=== PATIENT | male | born 1975 ===

== ENCOUNTER 2016-10-12 20:48 | Observation (INO) | payer OTHER ==
[~2016-10-12] VITALS: Ht 172.7 cm; Wt 101.1 kg
[2016-10-12] MEDS ORDERED: HYDR25TA4 PO (21:35)
[2016-10-12] MEDS ORDERED: AMLO-110 PO (21:35)
[2016-10-12] MEDS ORDERED: LORAZEPAM 2 MG/ML 1 ML VIAL IV STA (21:57)
--- NOTE | 2016-10-12 22:20 | DIAGNOSTIC IMAGING REPORT ---
CHEST ONE VIEW PORTABLE CLINICAL HISTORY: CHEST PAIN dyspnea COMPARISON STUDY: No previous studies for comparison. FINDINGS: The bones soft tissues and hemidiaphragms are normal. The cardiomediastinal silhouette is normal. The lungs are clear. The pulmonary vasculature is normal. IMPRESSION: Negative chest. Electronically signed by: Sotero Kennedy M.D. 10/12/2016 10:19 PM Dictated Date/Time: 10/12/2016 10:19 PM
[2016-10-12 22:25] LABS: BASO % 0.2 %; BASO ABS # 0.03 K/uL (0-0.2); EOS % 3.5 %; HEMATOCRIT 44.5 % (42-52); IG% 0.4 %; LYMPH % 33.3 %; MEAN CELL VOLUME 68.4 fL (80-100); MEAN CORPUSCULAR HEMOGLOBIN 23.5 pg (25-34); MEAN CORPUSCULAR HGB CONC 34.4 g/dl (32-36); MEAN PLATELET VOLUME 9.9 fL (7.4-10.4); MONO % 6.2 %; NEUT % 56.4 %; PLATELET COUNT 328 K/uL (130-400); RED BLOOD COUNT 6.51 M/uL (4.7-6.1); WHITE BLOOD COUNT 13.21 K/uL (4.8-10.8)
[2016-10-12] MEDS ORDERED: PRLSR20 PO (22:29)
[2016-10-12] MEDS ORDERED: PEDICHW34 PO (22:30)
[2016-10-12] MEDS ORDERED: LORA-741 PO (22:30)
[2016-10-12 22:44] LABS: BUN/CREATININE RATIO 10.4 (10-20); CALCIUM 9.1 mg/dl (8.5-10.1); CREATININE 1.6 mg/dl (0.60-1.40); MAGNESIUM 2.2 mg/dl (1.8-2.4); POTASSIUM 3.3 mmol/L (3.5-5.1)
[2016-10-12 22:59] LABS: CKMB/CK RATIO 0.6 (0-3.0); THYROID STIMULATING HORMONE 2.86 uIu/ml (0.300-4.500)
[2016-10-12 23:27] LABS: COMPLETE YES; MICROCYTOSIS PRESENT
[2016-10-12 23:38] LABS: C-REACTIVE PROTEIN 1.47 mg/dl (0-0.29)
[2016-10-13] MEDS ORDERED: POTASSIUM CHLORIDE 10 MEQ TABCR PO STA (00:11)
[2016-10-13] MEDS ORDERED: OPTIRAY 320 IV PRN (00:15)
[2016-10-13] MEDS ORDERED: LORAZEPAM 2 MG/ML 1 ML VIAL IV PRN (02:00)
[2016-10-13] MEDS ORDERED: HYDROmorphone INJ 0.5 MG/0.5 ML SYR IV PRN (02:00)
[2016-10-13] MEDS ORDERED: TRAMADOL HCL 50 MG TAB PO PRN (02:00)
[2016-10-13] MEDS ORDERED: ONDANSETRON INJ 2 MG/ML 2 ML VIAL IV PRN (02:00)
[2016-10-13] MEDS ORDERED: NITROGLYCERIN 0.4 MG SL PER TAB CHARGE SL PRN (02:00)
[2016-10-13] MEDS ORDERED: ACETAMINOPHEN 325 MG TAB PO PRN (02:00)
[2016-10-13 02:15] VITALS: BP 192/93; PULSE 86; TEMP 36.6; O2SAT 95; Ht 172.7 cm; Wt 101.1 kg
[2016-10-13] MEDS ORDERED: IV FLUIDS COMPLETED PRN (02:15)
[2016-10-13] MEDS ORDERED: LORAZEPAM INJ 0.5 MG in SYRINGE 0.75 ML IV PRN (02:30)
[2016-10-13] MEDS ORDERED: NSS + 20MEQ KCL 1000ML 1,000 ML IV ONE (02:45)
[2016-10-13] MEDS ORDERED: AMLODIPINE BESYLATE 5 MG TAB PO ONE (04:26)
--- NOTE | 2016-10-13 04:54 | EMERGENCY ROOM VISIT NOTE ---
History First contact with patient: 21:28 Chief Complaint: CHEST PAIN Stated Complaint: CHEST PAIN Nursing Triage Summary: Patient states "I have high blood pressure and chest pain since this afternoon. " History of Present Illness The patient is a 41 year old male who presents to the Emergency Room with complaints of cough, fatigue for the past 10 days he's been extremely fatigued for the past 3 months. Patient states yesterday he went to the [facility] for his cough and cold symptoms and they noticed his blood pressure was high. They started him on hydrochlorothiazide today. He followed up today and was still high. He was told to double some amlodipine. Today at 4:30 PM when he was in a car he had 3 minutes of left-sided chest pain. He had another episode a few hours later. This was not prolonged. No prior history of heart disease. He states he had a stress test and echo a few years ago that was normal per patient. Patient states he does snore when he sleeps but was checked for sleep apnea and this was negative. No family history of heart disease. Patient denies prolonged chest pain, nausea, vomiting, diarrhea, diaphoresis, abdominal pain, back pain, palpitations, racing heart, leg pain or swelling. He has traveled recently. His blood pressure was 200/100 today and yesterday. Review of Systems See HPI for pertinent positives & negatives. A total of 10 systems reviewed and were otherwise negative. Past Medical/Surgical History Medical Problems: (1) Chest pain Hypertension, GERD Social History Smoking Status: Current Every Day Smoker Drug Use: none Marital Status: Housing Status: lives with family Current/Historical Medications Scheduled Amlodipine (Norvasc), 5 MG PO DAILY Hydrochlorothiazide (Hctz), 25 MG PO DAILY Omeprazole (Prilosec), 20 MG PO DAILY Pediatric Multiple Vitamin W/ (Gummi Bear Multivitamin/M), 1 TAB PO DAILY Scheduled PRN Lorazepam (Ativan), 0.5 MG PO HS PRN for Sleep Allergies Coded Allergies: Shellfish (Verified Allergy, Unknown, swelling of lips and face, 10/13/16) Physical Exam Vital Signs Date Time Temp Pulse Resp B/P Pulse Ox O2 Delivery O2 Flow Rate FiO2 10/13/16 00:58 157/103 10/13/16 00:45 81 19 10/13/16 00:28 169/107 10/13/16 00:15 82 24 98 2/17/17 00:05 153/98 10/12/16 23:58 153/98 10/12/16 23:53 137/96 10/12/16 23:45 82 22 10/12/16 22:58 150/109 10/12/16 22:55 89 18 159/116 95 Room Air 10/12/16 22:54 159/116 10/12/16 22:45 85 22 92 10/12/16 22:04 Room Air 10/12/16 22:04 Room Air 10/12/16 21:26 96 18 167/114 97 Room Air 10/12/16 21:26 100 10/12/16 20:58 97 Room Air 10/12/16 20:56 37.0 115 18 166/109 97 Room Air Pain Rating (0-10): 0 Physical Exam VITALS: Vitals are noted on the nurse's note and reviewed by myself. Vital signs hypertensive GENERAL: Pleasant male anxious-appearing, in no acute distress, nondiaphoretic, well-developed well-nourished. SKIN: The skin was without rashes, erythema, edema, or bruising. There is no tenting of the skin. Capillary reflex less than 2 seconds. HEAD: Normocephalic atraumatic. EARS: External auditory canals clear, tympanic membranes pearly bolden without erythema or effusion bilaterally. EYES: Pupils equal round and reactive to light and accommodation. Conjunctivae without injection, sclerae without icterus. Extraocular movements intact. NOSE: Patent, turbinates without inflammation or discharge. MOUTH: Mucous membranes moist. Pharynx without erythema or exudate. Uvula midline. Airway patent. Tongue does not deviate. NECK: Supple without nuchal rigidity. No lymphadenopathy. No thyromegaly. Cervical spine is nontender. No JVD. HEART: Regular rate and rhythm without murmurs gallops or rubs. LUNGS: Clear to auscultation bilaterally without wheezes, rales or rhonchi. No dullness to percussion. No retractions or accessory muscle use. ABDOMEN: Positive bowel sounds x 4. Normal tympanic percussion. Soft, nontender, without masses or organomegaly. Merino sign negative. No guarding or rebound tenderness. MUSCULOSKELETAL: No muscle atrophy, erythema, or edema noted. NEURO: Patient was alert and oriented to person place and time. Normal sensation to light and sharp touch. No focal neurological deficits. Medical Decision & Procedures Laboratory Results 10/12/16 22:08 Red Blood Count 6.51, Mean Corpuscular Volume 68.4, Mean Corpuscular Hemoglobin 23.5, Mean Corpuscular Hemoglobin Concent 34.4, Mean Platelet Volume 9.9, Neutrophils (%) (Auto) 56.4, Lymphocytes (%) (Auto) 33.3, Monocytes (%) (Auto) 6.2, Eosinophils (%) (Auto) 3.5, Basophils (%) (Auto) 0.2, Neutrophils # (Auto) 7.45, Lymphocytes # (Auto) 4.40, Monocytes # (Auto) 0.82, Eosinophils # (Auto) 0.46, Basophils # (Auto) 0.03 10/12/16 22:08 Test 10/12/16 22:08 10/13/16 00:47 White Blood Count 13.21 K/uL (4.8-10.8) Red Blood Count 6.51 M/uL (4.7-6.1) Hemoglobin 15.3 g/dL (14.0-18.0) Hematocrit 44.5 % (42-52) Mean Corpuscular Volume 68.4 fL (80-100) Mean Corpuscular Hemoglobin 23.5 pg (25-34) Mean Corpuscular Hemoglobin Concent 34.4 g/dl (32-36) Platelet Count 328 K/uL (130-400) Mean Platelet Volume 9.9 fL (7.4-10.4) Neutrophils (%) (Auto) 56.4 % Lymphocytes (%) (Auto) 33.3 % Monocytes (%) (Auto) 6.2 % Eosinophils (%) (Auto) 3.5 % Basophils (%) (Auto) 0.2 % Neutrophils # (Auto) 7.45 K/uL (1.4-6.5) Lymphocytes # (Auto) 4.40 K/uL (1.2-3.4) Monocytes # (Auto) 0.82 K/uL (0.11-0.59) Eosinophils # (Auto) 0.46 K/uL (0-0.5) Basophils # (Auto) 0.03 K/uL (0-0.2) RDW Standard Deviation 38.2 fL (36.4-46.3) RDW Coefficient of Variation 15.6 % (11.5-14.5) Immature Granulocyte % (Auto) 0.4 % Immature Granulocyte # (Auto) 0.05 K/uL (0.00-0.02) Microcytosis PRESENT Erythrocyte Sedimentation Rate 60 mm/hr (0-14) D-Dimer 550 ug/L FEU (0-500) Anion Gap 12.0 mmol/L (3-11) Est Creatinine Clear Calc Drug Dose 68.1 ml/min Estimated GFR () 60.7 Estimated GFR (Non- 52.4 BUN/Creatinine Ratio 10.4 (10-20) Calcium Level 9.1 mg/dl (8.5-10.1) Magnesium Level 2.2 mg/dl (1.8-2.4) Total Bilirubin 0.6 mg/dl (0.2-1) Direct Bilirubin 0.1 mg/dl (0-0.2) Aspartate Amino Transf (AST/SGOT) 24 U/L (15-37) Alanine Aminotransferase (ALT/SGPT) 54 U/L (12-78) Alkaline Phosphatase 104 U/L (45-117) Total Creatine Kinase 138 U/L (39-308) Creatine Kinase MB 0.8 ng/ml (0.5-3.6) Creatine Kinase MB Ratio 0.6 (0-3.0) C-Reactive Protein 1.47 mg/dl (0-0.29) Total Protein 8.6 gm/dl (6.4-8.2) Albumin 3.7 gm/dl (3.4-5.0) Lipase 160 U/L (73-393) Thyroid Stimulating Hormone (TSH) 2.860 uIu/ml (0.300-4.500) Lyme Disease IgG Antibody NEG (NEG) Lyme Disease IgM Antibody NEG (NEG) Lactic Acid Level 1.5 mmol/L (0.4-2.0) Troponin I 0.221 ng/ml (0-0.045) Medications Administered Medications (Trade) Dose Ordered Sig/Robbin Route Start Time Stop Time Status Last Admin Dose Admin Lorazepam (Ativan Inj) 1 mg NOW STAT IV 10/12/16 21:57 10/12/16 21:59 DC 10/12/16 22:15 1 MG Potassium Chloride (Klor-Con M10) 40 meq NOW STAT PO 2/17/17 00:11 10/13/16 00:22 DC 10/13/16 00:30 40 MEQ ED Course Prior records/ancillary studies reviewed. Triage Nursing notes reviewed. Additional history obtained from family. The patient's history was concerning for elevated blood pressure, fatigue, cough and chest pain. Differential diagnosis: Etiologies such as cardiac ischemia, aortic dissection, pulmonary embolism, pneumonia, pneumothorax, musculoskeletal, infections, pericarditis, myocarditis , esophageal rupture, gastrointestinal, as well as others were entertained. Physical examination: As above. ER treatment provided: Ativan On reassessment the patient felt better. Diagnostic interpretation by me: The electrocardiogram was normal sinus, normal intervals, T wave inversions with depressions in the inferior lateral leads, rate of 102. Impression sinus tachycardia with T-wave inversions and depressions in inferior lateral leads interpreted by myself. Repeat EKG is unchanged. Stress test and echo was reviewed in the [facility] system. Patient was unable to complete the stress test due to fatigue. EKG from last year showed ST and T wave abnormality, consider lateral ischemia. This is dictated. I was unable to visualize the EKG myself. The labs revealed elevated troponin. Leukocytosis. Elevated sedimentation rate and CRP. Imaging studies: Chest x-ray as above CHEST ONE VIEW PORTABLE CLINICAL HISTORY: CHEST PAIN dyspnea COMPARISON STUDY: No previous studies for comparison. FINDINGS: The bones soft tissues and hemidiaphragms are normal. The cardiomediastinal silhouette is normal. The lungs are clear. The pulmonary vasculature is normal. IMPRESSION: Negative chest. Electronically signed by: Sotero Kennedy M.D. CT was read by stat radiology negative for PE. Consultation: A consultation was placed with the hospitalist, Dr. Drew. The case was discussed and diagnostics were reviewed. The patient was evaluated in the ER for further treatment. Exam and history seem consistent with elevated troponin, cough, chest pain with fatigue. Patient will be evaluated by medicine. He has an abnormal EKG. He's had an abnormal EKG in the past. Patient was asymptomatic while in the ER for ACS. He was having no chest pain. Repeat EKG was unchanged.By the evaluation outlined above emergent etiologies such as aortic dissection, pulmonary embolism, pneumonia, pneumothorax, pericarditis, gastrointestinal, as well as others were deemed relatively unlikely. The pt informed about the findings as listed above. All questions were answered and pleased with the treatment. Case reviewed with my attending. Medical Decision As above Impression Primary Impression: Elevated troponin Additional Impression: Precordial chest pain Departure Information Dispostion Still a Patient Condition FAIR Referrals Bryant Ayala, D.O. (PCP) Forms HOME CARE DOCUMENTATION FORM, IMPORTANT VISIT INFORMATION Patient Instructions [facility] Problem Qualifiers
[2016-10-13 06:06] VITALS: BP 115/82; PULSE 82; TEMP 36.5; O2SAT 95
[2016-10-13 06:15] LABS: BASO % 0.4 %; BASO ABS # 0.04 K/uL (0-0.2); EOS % 4.8 %; HEMATOCRIT 40.8 % (42-52); IG% 0.3 %; LYMPH % 45.6 %; LYMPH ABS # 4.93 K/uL (1.2-3.4); MEAN CELL VOLUME 67.4 fL (80-100); MEAN CORPUSCULAR HEMOGLOBIN 22.5 pg (25-34); MEAN CORPUSCULAR HGB CONC 33.3 g/dl (32-36); MEAN PLATELET VOLUME 9.8 fL (7.4-10.4); MONO % 5.5 %; NEUT % 43.4 %; PLATELET COUNT 324 K/uL (130-400); RED BLOOD COUNT 6.05 M/uL (4.7-6.1)
[2016-10-13 06:25] LABS: INR 0.9 (0.9-1.1); PROTHROMBIN TIME (PATIENT) 9.9 SECONDS (9.0-12.0)
[2016-10-13 06:45] LABS: CALCIUM 8.3 mg/dl (8.5-10.1); CREATININE 1.4 mg/dl (0.60-1.40); POTASSIUM 3.5 mmol/L (3.5-5.1)
[2016-10-13 06:56] LABS: COMPLETE YES; MICROCYTOSIS PRESENT
[2016-10-13 07:27] VITALS: BP 135/88; PULSE 82; TEMP 36.5; O2SAT 97
--- NOTE | 2016-10-13 07:27 | DIAGNOSTIC IMAGING REPORT ---
CT ANGIOGRAM OF THE CHEST CLINICAL HISTORY: Cough. Atypical chest pain. COMPARISON STUDY: Chest x-ray dated 10/12/2016. TECHNIQUE: Following the IV administration of 94 cc of Optiray 320, CT angiogram of the chest was performed from the upper abdomen to the thoracic inlet utilizing the pulmonary embolus protocol. Images are reviewed in the axial, sagittal, and coronal planes. 3-D MIPS images are created and assessed. IV contrast was administered without complication. CT DOSE: 585.99 mGy.cm FINDINGS: Thyroid: Imaged portions of the thyroid gland are normal in size and attenuation. Thoracic aorta: The thoracic aorta is normal in caliber and demonstrates standard 3-vessel arch anatomy. No dissection is seen. Pulmonary vasculature: The pulmonary trunk is normal in caliber. There are no filling defects identified in main, lobar, or segmental pulmonary branches to suggest pulmonary embolus. Heart: The heart is top normal in size and without pericardial effusion. Lungs and pleural spaces: Evaluation of the lung parenchyma is modestly degraded by respiratory motion artifact. There is no airspace consolidation or pleural effusion. A small calcified granulomas noted in the right upper lobe. There is a 6 mm pleural-based nodule in the right middle lobe seen on image #162. The trachea and central airways are patent. Mediastinum: There is no mediastinal lymphadenopathy. Joy: No hilar adenopathy is identified. There are calcification containing right hilar nodes Axillae: There is no axillary lymphadenopathy. Upper abdomen: There is a small hiatal hernia. Partially visualized upper abdominal viscera is otherwise within normal limits. Skeletal structures: No lytic or blastic bony lesions are seen. IMPRESSION: 1. There is no evidence of pulmonary embolus in the main, lobar, or segmental pulmonary arteries. 2. There is no airspace consolidation or pleural effusion. 3. There is a 6 cm pleural-based nodule in the right middle lobe. This is pathologically indeterminant but low suspicion, and can be followed as per the Fleischner criteria. See below. Please refer to below summary of Fleischner criteria recommendations for follow-up of incidental CT nodules (Darrell Reynoso, Guidelines for management of small pulmonary nodules detected on CT scans: A statement from the Fleischner Society, Radiology 237: [phone].) Low Risk Patient: Minimal or no smoking or other known risk factors for malignancy <=4 mm: No follow-up needed. >4-6 mm: Initial follow-up CT at 12 months; if unchanged, no further follow-up. >6-8 mm: Initial follow-up CT at 6-12 months then at 18-24 months if no change. >8 mm: Follow-up CT at \R\3, 9, 24 months, or PET and/or biopsy. High Risk Patient: History of smoking or other known risk factors <=4 mm: Follow-up at 12 months; if unchanged, no further follow-up. >4-6 mm: Initial follow-up CT at 6-12 months then at 18-24 months if no change. >6-8 mm: Initial follow-up CT at 3-6 months then at 9-12 and 24 months if no change. >8 mm: Same as low risk patient. Note: Nodule size measured as average of length and width. Ground glass or partly solid nodules may require longer follow-up to exclude indolent adenocarcinoma. Electronically signed by: Marquis Lomax M.D. 10/13/2016 7:26 AM Dictated Date/Time: 10/13/2016 7:21 AM
[2016-10-13] MEDS: HEPARIN SOD 5000 UNIT/0.5 ML CARP SQ SCH ×2 (07:30→13:54)
--- NOTE | 2016-10-13 08:30 | HISTORY & PHYSICAL EXAMINATION ---
DATE OF ADMISSION: 10/13/2016 PRIMARY CARE PHYSICIAN: Dr. Ayala. Hx obtained from px and records. CHIEF COMPLAINT: High blood pressure. HISTORY OF PRESENT ILLNESS: Medical history significant for hypertension, GERD, past tobacco abuse, sleep apnea as per records (Patient claims he is unaware of outpx diagnosis.) For several months now, the patient has not been feeling well, no energy, denies depression. Claims that he sleeps well at night although he is still sleepy in the morning. Denies unusual stress at home or work. About 2 weeks ago, the patient was sick with a respiratory tract infection, sick contacts, had a productive cough, yellow sputum, nasal congestion. Seen at PCP's office a few days ago. Blood pressure noted to be high in the office, blood pressure 170/109. Unknown BP control at home as patient does not take blood pressure regularly at home. Px denies dietary indiscretion or NSAID intake. Impression was complicated bronchitis. Patient prescribed Omnicef and prednisone. Px complied Omnicef, not Prednisone. Patient returned for followup visit yesterday. SBP noted to be 200. Amlodipine dose increased from 5 to 10. HCTZ added to regimen. Patient given clonidine one dose. When the patient got home, SBP 200s. Patient also noted substernal heaviness on the left side, nonradiating, no shortness of breath. Upon arrival at the Emergency Room, chest pain almost gone, resolving, SBP noted to be 150s. Patient currently comfortable, complaining of generalized fatigue. MEDICAL HISTORY: As above. Recent [facility] Sleep medicine visit November 2015. As per note, potential disorder with initial complaints of snoring, witnessed apnea, and refreshing sleep, choking arousals, excessive daytime sleepiness. Patient reported that he knows he has sleep apnea when he does not sleep prone and sleep study has confirmed that. Patient had concerns about insomnia. Trial of Lunesta, weight loss was advised. The patient advised to practice position sleeping on prone, avoiding back and sides, right side with demonstrated moderate sleep apnea. No follow up since. Stress test was done in May 2015 was inconclusive. Stress test was terminated due to fatigue, stress echo negative for inducible ischemia, uninterpretable stress EKG 2 to LVH. SURGERIES: None. HOME MEDICATIONS: Norvasc, amlodipine, HCTZ, Prilosec. ALLERGIES: SHELLFISH. FAMILY HISTORY: Family history of heart disease. PERSONAL AND SOCIAL HISTORY: Past tobacco abuse. No chronic intake of alcohol, social drinker. 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 REVIEW OF SYSTEMS: As per HPI, R foot pain the last 3 weeks poss from new exercise shoes as per patient. all other ROS negative. PHYSICAL EXAMINATION: VITAL SIGNS: Blood pressure was noted to be 166/109, pulse rate 115, RR 18, temperature 37 and sats 97% on room air. GENERAL: Noted to be slightly anxious, obese. SKIN: Normal color. HEENT: Hibernia palpebral conjunctivae. Dry mucosa. NECK: Short neck. CHEST: Clear to auscultation. No anterior chest wall tenderness. HEART: Regular rate and rhythm. ABDOMEN: Soft. min distention. EXTREMITIES: No edema, some tenderness on the right lateral foot NEUROLOGIC: No gross focality. LABS: Hemoglobin was noted to be 15.3, white cell count 13.21 platelets 200. Sodium 140, potassium 3.3, chloride 100, CO2 27, BUN 70, creatinine 1.6 from normal baseline. Troponin 0.219. EKG, rate 85, normal sinus rhythm, LVH, T-wave inversion on the lateral leads. CT chest, no PE, initial read. ASSESSMENT: 1. Chest pain, troponinemia likely secondary to hypertensive urgency multifactorial : JESSE, suboptimal state (poss explanation for chronic fatigue sx for months) (Patient denies knowledge of formal diagnosis of JESSE as per outpx Sleep Medicine documentation) anxiety contributory 2. Past tobacco abuse 3. GERD, stable on home PPI 4. Hypokalemia, ARF possibly secondary to diuretic therapy. PLAN: Observation PCU blood pressure control, monitor response to Norvasc, May need a second agent replace K Hold home diuretic for now in light of acute renal failure and hypokalemia. baseline UA, monitor creatinine response to IVF ff cardiac markers, TTE re cp Outpatient ffup w/ [facility] Patient re-counselled about uncontrolled HTN, chronic fatigue symptoms possibly being secondary to untreated JESSE/SDB anxiolytic prn DVT prophylaxis. Heparin subQ. Full code. MTDD
[2016-10-13] MEDS ORDERED: AMLODIPINE BESYLATE 5 MG TAB PO SCH (09:00)
[2016-10-13] MEDS ORDERED: INFLUENZA VIRUS QUAD VACCINE 0.5 ML SYR IM. ONE (09:00)
[2016-10-13] MEDS ORDERED: INFLUENZA ADMINISTRATION CHARGE ONE (09:00)
[2016-10-13] MEDS: FLINTSTONES COMPLETE CHEWABLE TAB PO SCH (09:14)
[2016-10-13] MEDS: PANTOprazole SOD 40 MG TAB PO SCH (09:14)
[2016-10-13 11:10] VITALS: BP 150/98; PULSE 80; TEMP 36.7; O2SAT 95
[2016-10-13 13:23] LABS: URINE APPEARANCE CLEAR (CLEAR); URINE BILIRUBIN NEG (NEG); URINE COLOR YELLOW; URINE NITRITE NEG (NEG); URINE SPECIFIC GRAVITY 1.016 (1.000-1.030); UROBILINOGEN NEG (NEG); ZZUR CULT IF INDIC CLEAN CATCH NO
[2016-10-13 13:25] LABS: MANUAL MICROSCOPIC REQUIRED? NO; REVIEW REQ? NO
[2016-10-13 13:56] LABS: BENZODIAZEPINE, URINE NEG (NEG); COCAINE,URINE NEG (NEG); PHENCYCLIDINE, URINE NEG (NEG)
[2016-10-13 16:10] VITALS: BP 152/91; PULSE 80; TEMP 36.3; O2SAT 98
--- NOTE | 2016-10-13 16:26 | Progress Note ---
Progress Note ATTENDING ADDENDUM : pt admitted earlier today with Hypertensive urgency , chest pain mentions of having weakness, lack of energy for past 2 months developed URI with low grade fever , yellow productive sputum , headache for approx 2 weeks back several of his family members were ill with cough and cold saw Salma PRADHAN in [facility] office on 10/11 was Prescribed Omnicef and Prednisone on 10/11/16 BP in that visit was 178/109 pt mentions he did not take Prednisone due to side effect concern took a lot of Over the counter Mucinex -mentions of finishing approx 3 bottles of them pt had repeat follow up visit on 10/12/16 due to hypertension was started on HCTZ 25 increased Norvasc to 10 mg asked to stop taking Mucinex pt developed transient chest pain at left side ( felt like bubble ) no SOB , no radiation pain was resolved on arrival to ED BP was elevated > 170 mild elevation of lakia 0.2 with RODRIGO Cr 1.6 HYPERTENSIVE URGENCY : possible due to taking excessive amount of Mucinex BP much improved now transient chest pain left sided -possible due to elevated BP cont Norvasc 10 mg PO daily ELEVATED TROPONIN : possible due to above EKG -T wave flattening on lateral leads ECHO ordered no symptom of chest pain of SOB ' no prior hx of CAD , no Family hx of CAD ( Father has HTN , mother DM , carotid artery disease s/p endarterectomy) Cardiology eval requested will benefit form out pt cardiac stress test RODRIGO ON CKD STAGE 3 possible due to dehydration , poor PO intake started on HCTZ -which is discontinued on admission renal function improved to baseline with IV hydration repeat PRP in AM avoid NSAID's WEAKNESS /FATIGUE : not sure of the etiology mono titer /lyme titer negative TSH -wnl ordered for flu swab Vit D level borderline low 16 ( normal range > 19 ) ordered for Vit D supplement check Vit b12 , folic acid in AM labs FULL CODE DISPOSITION : possible discharge home tomorrow if BP remains stable medicine follow up with Dr Bryant Ayala
[2016-10-13] MEDS ORDERED: TEMAZEPAM 15 MG CAP PO PRN (16:45)
[2016-10-13] MEDS ORDERED: LORAZEPAM 0.5 MG TAB PO PRN (16:45)
[2016-10-13] MEDS ORDERED: ASPIRIN 81 MG ECTAB PO ONE (18:00)
[2016-10-13] MEDS: CHOLECALCIFEROL 1000 INTER.UNIT TAB PO SCH (18:16)
[2016-10-13 19:17] LABS: INFLUENZA A PCR Neg for Influ A (NEG); INFLUENZA B PCR Neg for Influ B (NEG)
[2016-10-13 20:25] VITALS: BP 156/80; PULSE 80
[2016-10-13] MEDS: CARVEDILOL 3.125 MG TAB PO SCH (20:30)
[2016-10-14 00:15] VITALS: BP 154/98; PULSE 72; TEMP 36.4; O2SAT 97
[2016-10-14 04:00] VITALS: BP 152/88; PULSE 77; TEMP 36.3; O2SAT 98
--- NOTE | 2016-10-14 06:37 | ECHOCARDIOGRAM REPORT ---
*NOTICE TO RECEIVING [employer] This information is strictly Confidential and protected under [place] law. [place] law prohibits you from making any further disclosure of this information unless further disclosure is expressly permitted by the written consent of the person to whom it pertains or is authorized by law. A general authorization for the release of medical or other information is not sufficient for this purpose. Hospital accepts no responsibility if the information is made available to any other person, INCLUDING THE PATIENT. Interpretation Summary * Name: MARIA ESTHER RENTERIA Study Date: 10/13/2016 03:17 PM BP: 150/98 mmHg * Patient Location: [facility]\S\N277\S\1 HR: 75 * : 1975 (M/d/yyyy) Gender: Male Height: 67 in * Age: 41 yrs Ethnicity: [place] Weight: 222 lb * Ordering Physician: Gucci Johnson * Referring Physician: Self, Referred * Performed By: Cristel Hare RCS * * Reason For Study: CHEST PAIN * BSA: 2.1 m2 * -- Conclusions -- * There is severe concentric left ventricular hypertrophy. * The left ventricular wall motion is normal. * Normal to hyperdynamic left ventricular systolic funciton is present. * The LV Ejection Fraction = 65-70%. * Mild aortic regurgitation. * Diastolic dysfunction, Grade II (pseudonormalization pattern). * The aortic root is mildly dilated. * The proximal ascending thoracic aorta is normal in diameter. Procedure Details * A complete two-dimensional transthoracic echocardiogram was performed (2D, M-mode, Doppler and color flow Doppler). Left Ventricle * The left ventricle is normal in size. * There is severe concentric left ventricular hypertrophy. * Normal to hyperdynamic left ventricular systolic funciton is present. * Ejection Fraction = 65-70%. * The left ventricular wall motion is normal. * No regional wall motion abnormalities noted. Right Ventricle * The right ventricle is normal size. * The right ventricular systolic function is normal as assessed by tricuspid annular plane systolic excursion (TAPSE) (normal >1.5 cm). Atria * The left atrial size is normal. * Right atrial size is normal. * There is no evidence of atrial septal defect, but resolution does not allow assessment for a patent foramen ovale. Mitral Valve * The mitral valve is normal. * There is no mitral valve stenosis. * Significant mitral regurgitation is absent. Tricuspid Valve * The tricuspid valve is normal. * There is no tricuspid stenosis. * Significant tricuspid regurgitation is absent. Aortic Valve * The aortic valve is trileaflet. * Aortic stenosis is absent. * Mild aortic regurgitation. Pulmonic Valve * The pulmonary valve is not well seen, but the Doppler examination is normal without significant regurgitation or stenosis. Great Vessels * The aortic root is mildly dilated. The proximal ascending thoracic aorta is normal in diameter. Pericardium/Pleural * There is no pericardial effusion. Great Vessels * Normal inferior vena cava diameter and respiratory variation suggests normal central venous pressure. Left Ventricular Diastolic Function * Diastolic dysfunction, Grade II (pseudonormalization pattern). MMode 2D Measurements and Calculations IVSd 1.7 cm IVSs 2.3 cm LVIDd 4.6 cm LVIDs 2.9 cm LVPWd 1.5 cm LVPWs 1.6 cm IVS/LVPW 1.2 FS 36.7 % EDV(Teich) 98.3 ml ESV(Teich) 32.9 ml EF(Teich) 66.5 % EDV(cubed) 98.6 ml ESV(cubed) 25.0 ml EF(cubed) 74.6 % % IVS thick 29.0 % % LVPW thick 5.9 % LV mass(C)d 324.2 grams LV mass(C)dI 153.4 grams/m\S\2 LV mass(C)s 238.1 grams LV mass(C)sI 112.6 grams/m\S\2 SV(Teich) 65.4 ml SI(Teich) 31.0 ml/m\S\2 SV(cubed) 73.6 ml SI(cubed) 34.8 ml/m\S\2 Ao root diam 4.1 cm Ao root area 13.2 cm\S\2 LA dimension 3.3 cm LA/Ao 0.81 LVOT diam 2.0 cm LVOT area 3.1 cm\S\2 LVAd ap4 36.3 cm\S\2 LVLd ap4 9.2 cm EDV(MOD-sp4) 118.1 ml EDV(sp4-el) 121.0 ml LVAs ap4 22.9 cm\S\2 LVLs ap4 7.7 cm ESV(MOD-sp4) 58.3 ml ESV(sp4-el) 58.0 ml EF(MOD-sp4) 50.6 % EF(sp4-el) 52.0 % LVAd ap2 38.3 cm\S\2 LVLd ap2 9.1 cm EDV(MOD-sp2) 136.0 ml EDV(sp2-el) 136.7 ml LVAs ap2 24.3 cm\S\2 LVLs ap2 7.6 cm ESV(MOD-sp2) 65.1 ml ESV(sp2-el) 66.1 ml EF(MOD-sp2) 52.1 % EF(sp2-el) 51.7 % LVLd %diff -1.06 % EDV(MOD-bp) 127.6 ml LVLs %diff -0.84 % ESV(MOD-bp) 61.9 ml EF(MOD-bp) 51.5 % SV(MOD-sp4) 59.8 ml SI(MOD-sp4) 28.3 ml/m\S\2 SV(MOD-sp2) 70.9 ml SI(MOD-sp2) 33.5 ml/m\S\2 SV(MOD-bp) 65.6 ml SI(MOD-bp) 31.1 ml/m\S\2 SV(sp4-el) 63.0 ml SI(sp4-el) 29.8 ml/m\S\2 SV(sp2-el) 70.6 ml SI(sp2-el) 33.4 ml/m\S\2 Doppler Measurements and Calculations MV E max bety 80.9 cm/sec MV A max bety 71.7 cm/sec MV E/A 1.1 MV P1/2t max bety 96.5 cm/sec MV P1/2t 65.9 msec MVA(P1/2t) 3.3 cm\S\2 MV dec slope 429.0 cm/sec\S\2 MV dec time 0.15 sec Ao V2 max 138.3 cm/sec Ao max PG 7.7 mmHg Ao max PG (full) 1.8 mmHg TONY(V,A) 2.8 cm\S\2 TONY(V,D) 2.8 cm\S\2 AI max bety 454.3 cm/sec AI max PG 82.6 mmHg AI dec slope 221.4 cm/sec\S\2 AI P1/2t 601.0 msec LV V1 max PG 5.9 mmHg LV V1 max 121.6 cm/sec PA V2 max 108.3 cm/sec PA max PG 4.7 mmHg
[2016-10-14 08:00] VITALS: BP 152/97; PULSE 74; TEMP 36.4; O2SAT 96
[2016-10-14 08:20] LABS: BUN/CREATININE RATIO 11.8 (10-20); CALCIUM 8.4 mg/dl (8.5-10.1); CREATININE 1.3 mg/dl (0.60-1.40); POTASSIUM 3.7 mmol/L (3.5-5.1)
[2016-10-14 08:23] LABS: CHOLESTEROL/HDL RATIO 4.7
[2016-10-14] MEDS ORDERED: AMLODIPINE BESYLATE 5 MG TAB PO SCH (09:00)
[2016-10-14] MEDS ORDERED: ASPIRIN 81 MG ECTAB PO SCH (09:00)
[2016-10-14] MEDS: CARVEDILOL 3.125 MG TAB PO SCH (09:21)
[2016-10-14] MEDS: PANTOprazole SOD 40 MG TAB PO SCH (09:22)
[2016-10-14] MEDS: FLINTSTONES COMPLETE CHEWABLE TAB PO SCH (09:22)
[2016-10-14] MEDS: CHOLECALCIFEROL 1000 INTER.UNIT TAB PO SCH (09:22)
[2016-10-14 11:20] VITALS: BP 148/98; PULSE 73; TEMP 36.6; O2SAT 96
[2016-10-14] MEDS ORDERED: VTMD1000 PO (13:06)
[2016-10-14] MEDS ORDERED: NRV5 PO (13:06)
[2016-10-14] MEDS ORDERED: ASPEC81 PO (13:06)
[2016-10-14] MEDS ORDERED: CRG3125 PO (13:06)
--- NOTE | 2016-10-14 13:08 | Discharge Instructions ---
Discharge Instructions Admission Reason for Admission: Chest Pain Discharge Discharge Diagnosis / Problem: HYPERTENSION Discharge Goals Goal(s): Improve disease control, Therapeutic intervention Activity Recommendations Activity Limitations: resume your previous activity . Instructions / Follow-Up Instructions / Follow-Up HOSPITAL FOLLOW UP ON 10/25/2016 @ 11:[address] Bryant Ayala DO [facility] CARDIOLOGY FOLLOW UP WITH CHANI FITCH PA-C AT [facility] PLEASE CALL OFFICE TO SCHEDULE APPOINTMENT Current Hospital Diet Patient's current hospital diet: AHA Diet (Heart Healthy) Discharge Diet Recommended Diet: Low Sodium Diet (2gm Na) Pending Studies Studies pending at discharge: no Laboratory Results Lipid Panel Test 10/14/16 07:30 Range/Units Triglycerides Level 125 0-150 mg/dl Cholesterol Level 160 0-200 mg/dl HDL Cholesterol 34 mg/dl Cholesterol/HDL Ratio 4.7 LDL Cholesterol, Calculated 101 mg/dl Medical Emergencies . Who to Call and When: Medical Emergencies: If at any time you feel your situation is an emergency, please call 911 immediately. . Non-Emergent Contact Non-Emergency issues call your: Primary Care Provider . . "Provider Documentation" section prepared by Malorie Gordon. VTE Core Measure Inpt VTE Proph given/why not?: Michael Mendez, [facility]
--- NOTE | 2016-10-14 13:17 | Cardiology Consultation ---
Cardiology Consultation Date of Consultation: Oct 14, 2016 History of Present Illness Lior Shipman is a 41-year-old male seen in cardiology consultation per the request of Dr. Gordon for evaluation of chest discomfort and mild elevation in cardiac isoenzymes. The patient states that he was in his normal state of health until approximately 2 weeks ago. He notes that his kids developed a respiratory illness. His children improved within a few days, but the patient developed progressive symptoms of waxing and waning fever and cough productive of green sputum. He states that he was taking a significant amount of over the counter cold remedy. He states that it was recent extra strength. He is unaware of what additives were in the cold remedy besides guaifenesin. I suspect that there was probably a decongestant that perhaps made his blood pressure worse. He had been seen by family practice and was placed on a course of antibiotics but he states he never had a chance to take that. We had also been seen by family practice and in addition to his cold symptoms he was noted to have significant elevation in his blood pressure and therefore his amlodipine was increased from 5 mg 10 mg and hydrochlorothiazide was added. The patient felt poorly the other day and he had a family member purchase a home blood pressure cuff for him. His home blood pressure readings included a systolic reading of approximately 200 mmHg. Corresponding with that high blood pressure patient states he was sitting in his car and he had a transient feeling of having a "bubble" over the left side of his chest. This concerned him and it prompted him to come to the emergency department. His initial blood pressure on presentation on 10/12/16 was 166/109. His most recent blood pressure is improved 148/98. The patient's cardiac history is notable for an abnormal EKG performed as an outpatient as part of a workup for hypertension that revealed diffuse repolarization changes consistent with LVH and strain pattern. A follow-up stress echocardiogram performed as an outpatient at [facility] on revealed severe concentric left ventricular hypertrophy on the baseline echo. There is actually a typing error on the stress echo report stating that the patient walked just over 2 minutes, but I reviewed the EKG mary kate data and he actually exercised into stage III achieving a moderately high work level of 8 minutes. The baseline EKG revealed LVH with strain pattern, the stress response by EKG criteria was nondiagnostic due to his baseline repolarization changes. There was an appropriate echocardiographic response however with appropriate augmentation of the left ventricle, and no evidence of inducible ischemia. The test was terminated due to shortness of breath at that time with no chest pain. History PAST MEDICAL HISTORY: 1. Gastroesophageal reflux disease 2. Hypertension, with underlying hypertensive heart disease based on EKG and resting echo findings in the past PAST SURGICAL HISTORY: No notable surgeries FAMILY HISTORY: Patient's mother is alive at age 64. She lives in [place]. She has a history of diabetes, and carotid endarterectomy. Patient's father is alive in his 60s. He apparently had a massive stroke approximately 10 years ago with resultant hemiparesis. His father had a long- standing history of high blood pressure. The patient has a brother and 3 sisters none of whom have any heart or vascular disease. SOCIAL HISTORY: The patient lives independently. He is . He states that he smokes cigarettes on occasion but only "when he drinks ". He states that he travels with his job and typically has 2 cocktails per evening over a weekend. 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 Review Of Systems See above for pertinent positives & negatives. A total of 10 systems reviewed and were otherwise negative. Allergies Coded Allergies: Shellfish (Verified Allergy, Unknown, swelling of lips and face, 10/13/16) Medications Reported Home Medications Medications Dose Route/Sig Max Daily Dose Days Date Category Vitamin D3 (Cholecalciferol) 1,000 Inter.unit Tab 1,000 Inter.unit PO QAM 30 10/14/16 Rx Aspirin EC Low Dose (Aspirin) 81 Mg Ectab 81 Mg PO QAM 30 10/14/16 Rx Carvedilol 3.125 Mg Tab 3.125 Mg PO BID 30 10/14/16 Rx Amlodipine Besylate 5 Mg Tab 10 Mg PO DAILY 30 10/14/16 Rx Gummi Bear Multivitamin/M (Pediatric Multiple Vitamin W/) 1 Chw Chw 1 Tab PO DAILY 10/12/16 Reported Ativan (Lorazepam) 0.5 Mg Tab 0.5 Mg PO HS PRN 10/12/16 Reported Prilosec (Omeprazole) 20 Mg Capcr 20 Mg PO DAILY 10/12/16 Reported Norvasc (Amlodipine Besylate) 5 Mg Tab 5 Mg PO DAILY 10/12/16 Reported Hctz (Hydrochlorothiazide) 25 Mg Tab 25 Mg PO DAILY 10/12/16 Reported Physical Exam Vital Signs (Last 8hrs): Last 8 Hrs Date Time Temp Pulse Resp B/P Pulse Ox O2 Delivery O2 Flow Rate FiO2 10/14/16 12:00 Room Air 10/14/16 11:20 36.6 73 18 148/98 96 10/14/16 08:00 Room Air 10/14/16 08:00 36.4 74 18 152/97 96 General Appearance: Alert and Oriented x3. NAD. Head: Normocephalic Atraumatic. Eyes: PERRLA, EOMI, conjunctiva and sclera clear Neck: Supple. No carotid bruits noted. No JVD. No HJD. Respiratory: Breath sounds clear to auscultation bilaterally. No w/r/r. Cardiovascular: Reg rate and rhythm. S1 and S2 noted. No murmurs, rubs, gallops. PMI non displace. Abdomen: Normal bowel sounds, soft nontender. no abdominal bruits. Extremities: No edema, no clubbing or cyanosis. distal pulses 2/4 bilaterally. Neuro: No focal deficits. Psychiatric: Normal affect. Data Last Resulted 10/13/16 05:28 Red Blood Count 6.05, Mean Corpuscular Volume 67.4, Mean Corpuscular Hemoglobin 22.5, Mean Corpuscular Hemoglobin Concent 33.3, Mean Platelet Volume 9.8, Neutrophils (%) (Auto) 43.4, Lymphocytes (%) (Auto) 45.6, Monocytes (%) (Auto) 5.5, Eosinophils (%) (Auto) 4.8, Basophils (%) (Auto) 0.4, Neutrophils # (Auto) 4.69, Lymphocytes # (Auto) 4.93, Monocytes # (Auto) 0.59, Eosinophils # (Auto) 0.52, Basophils # (Auto) 0.04 Last Resulted 10/14/16 07:30 Troponin I: 0.219, 0.2-1, and 0.217 ng/ml. Imaging: CT of the chest was negative for coronary embolism, no pericardial effusion noted. EKG: Serial EKG tracings have been performed revealing sinus rhythm, with inferior and lateral T-wave inversions consistent with LVH and strain pattern, compared to his outpatient EKG tracing performed when the patient was asymptomatic in 2014, the most recent tracings revealed less prominent repolarization changes. Telemetry reviewed: Sinus rhythm Transthoracic echocardiogram performed 10/13/16 and reviewed in apparently by the undersigned: * There is severe concentric left ventricular hypertrophy. * The left ventricular wall motion is normal. * Normal to hyperdynamic left ventricular systolic function is present. * The LV Ejection Fraction = 65-70%. * Mild aortic regurgitation. * Diastolic dysfunction, Grade II (pseudonormalization pattern). * The aortic root is mildly dilated. * The proximal ascending thoracic aorta is normal in diameter. Assessment & Plan Impression: 41-year-old male 1. Hypertensive urgency, perhaps precipitated by underlying respiratory illness , also I suspect that the [id number] cold remedies he was taking exacerbated his blood pressure 2. Underlying significant hypertension with hypertensive heart disease based on severe concentric LVH and diastolic dysfunction, baseline EKG with LVH and strain pattern Discussion/recommendations: EKG noted this hospital stay reveals LVH with strain pattern, with actually improved ST segments compared to his previous outpatient baseline. In terms of his chest pain, it was very brief, occurred at rest, and is not persisted, and I do not think it sounds as though was anginal in character. He could've had angina due to underlying hypertensive emergency, however this does not sound as though it was consistent with angina as it was not persistent and it just lasted a very brief amount of seconds over 2 episodes. I think the mild elevation in his troponin I is likely due to myocardial injury/ necrosis from strain related to his significant hypertension. His blood pressure appears to of been even higher as an outpatient before he sought treatment. At present time, I think the patient is stable for discharge. His amlodipine had been 5 mg by mouth daily and this was recently increased as an outpatient 10 mg daily. I think we should continue amlodipine 10 mg. Cardiac carvedilol 3.125 mg by mouth twice a day has been added. At this medication has been selected due to his severe concentric LVH, with normal to hyperdynamic LV systolic function. Recommend discontinuing hydrochlorothiazide. Blood pressure remains above goal at follow-up, would have low threshold for starting ACEI or ARB for additional blood pressure control as well as for its kidney protective benefits. Recommend outpatient cardiology follow-up within one to 2 weeks with physician malt specifications control assistant visit. Patient has recurrent chest pain would have low threshold to proceeding with a repeat exercise stress echocardiogram once he is recovered from his viral respiratory illness. Case was discussed with Dr. Gordon. Addendum: 10/14/16 1400 The patient had a friend bring in his [id number] cold remedy. The ingredients included guaifenesin, dextromethorphan, phenylephrine, and acetaminophen. Patient was counseled that he needs to avoid phenylephrine due to his underlying hypertension, severe LVH.
[2016-10-14 14:22] VITALS: BP 148/98; PULSE 73; TEMP 36.6; O2SAT 96
--- NOTE | 2016-10-14 16:38 | Progress Note ---
Internal Med Progress Note Date of Service: Oct 14, 2016. Provider Documentation: SUBJECTIVE: No complain of chest pain or SOB cough and sore throat has resolved no fever or chills BP remains stable very eager to be discharge home today OBJECTIVE: Vital Signs-as noted below Exam: General-no sign of distress Eyes-sclera non icteric ENT-NAD Neck-no thyromegaly Lungs-CTA Heart-regular S1/S2 Abdomen-soft, non tender Extremities- no lower ext edema Neuro-AAO x3 Lab data as noted below. ASSESSMENT & PLAN: HYPERTENSIVE URGENCY : presented with SBP ~200 Associated with headache , chest heaviness symptom has resolved BP improved after increasing dose of Norvasc form 5 mg to 10 mg and addition of Coreg 3.125 mg BID ECHO : shows concentric left ventricular wall hypertrophy -severe concentric LVH appreciate input from Cardiology stable to be discharged home today CHEST PAIN due to accelerated HTN symptom resolved as BP improved MILD ELEVATION OF TROPONIN : due to elevated BP , cardiac strain no evidence of ACS ECHO shows no wall motion abnormality GENERALIZED WEAKNESS : possible viral syndrome TSH -wnl mild vit D deficiency added supplement pt is asked to drink plenty of fluids cont out pt follow up with Family physician DVT PROPHYLAXIS sub Q heparin DISPOSITION Discharge home today Vital Signs: Date Time Temp Pulse Resp B/P Pulse Ox O2 Delivery O2 Flow Rate FiO2 10/14/16 14:22 36.6 73 18 96 Room Air 10/14/16 12:00 Room Air 10/14/16 11:20 36.6 73 18 148/98 96 10/14/16 08:00 Room Air 10/14/16 08:00 36.4 74 18 152/97 96 10/14/16 04:00 Room Air 10/14/16 04:00 36.3 77 20 152/88 98 Room Air 10/14/16 00:15 36.4 72 20 154/98 97 Room Air 10/14/16 00:00 Room Air 10/13/16 20:25 80 156/80 10/13/16 20:00 Room Air Lab Results: Results Past 24 Hours Test 10/14/16 07:30 Range/Units Sodium Level 142 136-145 mmol/L Potassium Level 3.7 3.5-5.1 mmol/L Chloride Level 105 98-107 mmol/L Carbon Dioxide Level 25 21-32 mmol/L Anion Gap 12.0 3-11 mmol/L Blood Urea Nitrogen 15 7-18 mg/dl Creatinine 1.30 0.60-1.40 mg/dl Est Creatinine Clear Calc Drug Dose 85.3 ml/min Estimated GFR () 78.0 Estimated GFR (Non- 67.3 BUN/Creatinine Ratio 11.8 10-20 Random Glucose 93 70-99 mg/dl Calcium Level 8.4 8.5-10.1 mg/dl Triglycerides Level 125 0-150 mg/dl Cholesterol Level 160 0-200 mg/dl HDL Cholesterol 34 mg/dl LDL Cholesterol, Calculated 101 mg/dl VLDL Cholesterol, Calculated 25 mg/dl Cholesterol/HDL Ratio 4.7 Vitamin B12 Level 412 211-911 pg/mL Folate 8.76 >5.38 ng/mL
--- NOTE | 2016-10-14 17:14 | Discharge Summary ---
Discharge Summary Admission Date: Oct 13, 2016 at 00:58 Discharge Date: Oct 14, 2016 Discharge Disposition: Home Principal Diagnosis: HYPERTENSION Consultations: CARDIOLOGY DR STALLINGS Medication Reconciliation New Medications: Amlodipine Besylate (Amlodipine Besylate) 5 Mg Tab 10 MG PO DAILY for 30 Days, #60 TAB 5 Refills Aspirin (Aspirin EC Low Dose) 81 Mg Ectab 81 MG PO QAM for 30 Days, #30 TABS 5 Refills Carvedilol (Carvedilol) 3.125 Mg Tab 3.125 MG PO BID for 30 Days, #60 TAB 5 Refills Cholecalciferol (Vitamin D3) 1,000 Inter.unit Tab 1000 INTER.UNIT PO QAM for 30 Days, #30 TAB 6 Refills Continued Medications: Lorazepam (Ativan) 0.5 Mg Tab 0.5 MG PO HS PRN for Sleep, TAB Omeprazole (Prilosec) 20 Mg Capcr 20 MG PO DAILY, CAP Pediatric Multiple Vitamin W/ (Gummi Bear Multivitamin/M) 1 Chw Chw 1 TAB PO DAILY Discontinued Medications: Amlodipine (Norvasc) 5 Mg Tab 5 MG PO DAILY, TAB Hydrochlorothiazide (Hctz) 25 Mg Tab 25 MG PO DAILY, TAB Referrals At Discharge Follow up Referrals: Physician Referral - Please Call For Appointment with Chani Fitch PA-C Admission Information HPI (per Admitting provider): DATE OF ADMISSION: 10/13/2016 PRIMARY CARE PHYSICIAN: Dr. Ayala. Hx obtained from px and records. CHIEF COMPLAINT: High blood pressure. HISTORY OF PRESENT ILLNESS: Medical history significant for hypertension, GERD, past tobacco abuse, sleep apnea as per records (Patient claims he is unaware of outpx diagnosis.) For several months now, the patient has not been feeling well, no energy, denies depression. Claims that he sleeps well at night although he is still sleepy in the morning. Denies unusual stress at home or work. About 2 weeks ago, the patient was sick with a respiratory tract infection, sick contacts, had a productive cough, yellow sputum, nasal congestion. Seen at PCP's office a few days ago. Blood pressure noted to be high in the office, blood pressure 170/109. Unknown BP control at home as patient does not take blood pressure regularly at home. Px denies dietary indiscretion or NSAID intake. Impression was complicated bronchitis. Patient prescribed Omnicef and prednisone. Px complied Omnicef, not Prednisone. Patient returned for followup visit yesterday. SBP noted to be 200. Amlodipine dose increased from 5 to 10. HCTZ added to regimen. Patient given clonidine one dose. When the patient got home, SBP 200s. Patient also noted substernal heaviness on the left side, nonradiating, no shortness of breath. Upon arrival at the Emergency Room, chest pain almost gone, resolving, SBP noted to be 150s. Patient currently comfortable, complaining of generalized fatigue. MEDICAL HISTORY: As above. Recent [facility] [place] November 2015. As per note, potential disorder with initial complaints of snoring, witnessed apnea, and refreshing sleep, choking arousals, excessive daytime sleepiness. Patient reported that he knows he has sleep apnea when he does not sleep prone and sleep study has confirmed that. Patient had concerns about insomnia. Trial of Lunesta, weight loss was advised. The patient advised to practice position sleeping on prone, avoiding back and sides, right side with demonstrated moderate sleep apnea. No follow up since. Stress test was done in May 2015 was inconclusive. Stress test was terminated due to fatigue, stress echo negative for inducible ischemia, uninterpretable stress EKG 2 to LVH. SURGERIES: None. HOME MEDICATIONS: Norvasc, amlodipine, HCTZ, Prilosec. ALLERGIES: SHELLFISH. FAMILY HISTORY: Family history of heart disease. PERSONAL AND SOCIAL HISTORY: Past tobacco abuse. No chronic intake of alcohol, social drinker. 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 REVIEW OF SYSTEMS: As per HPI, R foot pain the last 3 weeks poss from new exercise shoes as per patient. all other ROS negative. Physical Exam (per Admitting): PHYSICAL EXAMINATION: VITAL SIGNS: Blood pressure was noted to be 166/109, pulse rate 115, RR 18, temperature 37 and sats 97% on room air. GENERAL: Noted to be slightly anxious, obese. SKIN: Normal color. HEENT: [place] palpebral conjunctivae. Dry mucosa. NECK: Short neck. CHEST: Clear to auscultation. No anterior chest wall tenderness. HEART: Regular rate and rhythm. ABDOMEN: Soft. min distention. EXTREMITIES: No edema, some tenderness on the right lateral foot NEUROLOGIC: No gross focality. Hospital Course HYPERTENSIVE URGENCY : presented with SBP ~200 Associated with headache , chest heaviness symptom has resolved BP improved after increasing dose of Norvasc form 5 mg to 10 mg and addition of Coreg 3.125 mg BID ECHO : shows concentric left ventricular wall hypertrophy -severe concentric LVH appreciate input from Cardiology stable to be discharged home today CHEST PAIN due to accelerated HTN symptom resolved as BP improved MILD ELEVATION OF TROPONIN : due to elevated BP , cardiac strain no evidence of ACS ECHO shows no wall motion abnormality GENERALIZED WEAKNESS : possible viral syndrome TSH -wnl mild vit D deficiency added supplement pt is asked to drink plenty of fluids cont out pt follow up with Family physician DVT PROPHYLAXIS sub Q heparin DISPOSITION Discharge home today Discharge Instructions DI: Medical v4 Discharge Instructions Admission Reason for Admission: Chest Pain Discharge Discharge Diagnosis / Problem: HYPERTENSION Discharge Goals Goal(s): Improve disease control, Therapeutic intervention Activity Recommendations Activity Limitations: resume your previous activity . Instructions / Follow-Up Instructions / Follow-Up HOSPITAL FOLLOW UP ON 10/25/2016 @ 11:[address] Bryant Ayala DO [facility] CARDIOLOGY FOLLOW UP WITH CHANI FITCH PA-C AT [facility] PLEASE CALL OFFICE TO SCHEDULE APPOINTMENT Current Hospital Diet Patient's current hospital diet: AHA Diet (Heart Healthy) Discharge Diet Recommended Diet: Low Sodium Diet (2gm Na) Pending Studies Studies pending at discharge: no Laboratory Results Lipid Panel Test 10/14/16 07:30 Range/Units Triglycerides Level 125 0-150 mg/dl Cholesterol Level 160 0-200 mg/dl HDL Cholesterol 34 mg/dl Cholesterol/HDL Ratio 4.7 LDL Cholesterol, Calculated 101 mg/dl Medical Emergencies . Who to Call and When: Medical Emergencies: If at any time you feel your situation is an emergency, please call 911 immediately. . Non-Emergent Contact Non-Emergency issues call your: Primary Care Provider . . "Provider Documentation" section prepared by Malorie Gordon. VTE Core Measure Inpt VTE Proph given/why not?: Michael Mendez, SCD's Additional Copies To Bryant Ayala, DLolisO.
== END 2016-10-14 15:05 | disposition home or self-care (01) ==
LOC: ENRESERVTM → ENRESERVDT → C.EDB 20:51 → C.MED 10-13 00:58
PROVIDERS: ADMIT Internal Medicine; ATTEND Hospitalist
DX: I16.0 Hypertensive urgency (principal); R79.89 Other specified abnormal findings of blood chemistry; I11.9 Hypertensive heart disease without heart failure; E87.6 Hypokalemia; F17.210 Nicotine dependence, cigarettes, uncomplicated; G47.33 Obstructive sleep apnea (adult) (pediatric); R53.1 Weakness; K21.9 Gastro-esophageal reflux disease without esophagitis; G47.30 Sleep apnea, unspecified; Z87.891 Personal history of nicotine dependence; Z91.013 Allergy to seafood; Z82.49 Family history of ischemic heart disease and other diseases of the circulatory system; E55.9 Vitamin D deficiency, unspecified

== ENCOUNTER 2017-07-20 20:06 | Emergency (ER) | payer OTHER ==
[~2017-07-20] VITALS: Ht 170.2 cm; Wt 97.5 kg
[~2017-07-20 20:06] MED LIST: ASPEC81 PO; CRG3125 PO; LORA-741 PO; NRV5 PO; PEDICHW34 PO; PRLSR20 PO; VTMD1000 PO
[2017-07-20 20:16] VITALS: TEMP 36.9; Ht 170.2 cm; Wt 97.5 kg
[2017-07-20] MEDS ORDERED: LACTATED RINGER'S 1000ML 1,000 ML IV STA (20:31)
[2017-07-20] MEDS ORDERED: METOCLOPRAMIDE HCL INJ 5 MG/ML 2 ML VIAL IV STA (20:31)
--- NOTE | 2017-07-20 20:41 | EMERGENCY ROOM VISIT NOTE ---
History Report prepared by Daniela: Meggan Maza Under the Supervision of: Dr. Jono Burns M.D. First contact with patient: 20:24 Chief Complaint: HYPERTENSION Stated Complaint: HIGH BP, CHEST PAINS History of Present Illness The patient is a 42 year old male who presents to the Emergency Room with complaints of constant hypertension beginning a few days ago. The patient states that he has a history of hypertension and takes Carvedilol and Amlodipine. He reports that he was admitted to the hospital last year after having high blood pressure and chest pain. He notes that he has been losing weight and was told to taper off of the medication but he is noticing that his blood pressure has been increasing. The patient states that he has been having headaches and this has happened before with his hypertension. He denies any chest pain, shortness of breath, nausea, vomiting, and dizziness. The patient notes that he was on vacation last week and missed his Amlodipine but has been taking it on time since then. Source of History: patient Onset: a few days ago Position: other (globla) Quality: other (hypertension) Timing: constant Associated Symptoms: + headache, No chest pain, No SOB, No nausea, No vomiting Note: The patient denies any dizziness. Review of Systems See HPI for pertinent positives and negatives. A total of ten systems were reviewed and were otherwise negative. Past Medical & Surgical Medical Problems: (1) Chest pain (2) Hypertension Family History No pertinent family history stated. Social History Smoking Status: Current Every Day Smoker Drug Use: none Marital Status: Housing Status: lives with family Current/Historical Medications Scheduled Amlodipine Besylate (Amlodipine Besylate), 10 MG PO DAILY Aspirin (Aspirin EC Low Dose), 81 MG PO QAM Carvedilol (Coreg), 1 TAB PO BID Cholecalciferol (Vitamin D3), 1,000 INTER.UNIT PO QAM Omeprazole (Prilosec), 20 MG PO DAILY Pediatric Multiple Vitamin W/ (Gummi Bear Multivitamin/M), 1 TAB PO DAILY Scheduled PRN Lorazepam (Ativan), 0.5 MG PO HS PRN for Sleep Allergies Coded Allergies: Shellfish (Verified Allergy, Unknown, swelling of lips and face, 07/20/17) Physical Exam Vital Signs Date Time Temp Pulse Resp B/P (MAP) Pulse Ox O2 Delivery O2 Flow Rate FiO2 07/21/17 01:09 74 18 155/98 99 07/21/17 00:55 68 18 155/98 99 Room Air 07/20/17 23:00 58 07/20/17 22:52 63 16 143/87 99 Room Air 07/20/17 21:20 69 18 132/95 100 Room Air 07/20/17 20:16 36.9 76 16 158/102 98 Room Air Physical Exam GENERAL: Awake, alert, well-appearing, in no distress HENT: Normocephalic, atraumatic. Oropharynx unremarkable. EYES: Normal conjunctiva. Sclera non-icteric. NECK: Supple. No nuchal rigidity. FROM. No JVD. RESPIRATORY: Clear to auscultation. CARDIAC: Regular rate, normal rhythm. Extremities warm and well perfused. Pulses equal. ABDOMEN: Soft, non-distended. No tenderness to palpation. No rebound or guarding. No masses. RECTAL: Deferred. MUSCULOSKELETAL: Chest examination reveals no tenderness. The back is symmetrical on inspection without obvious abnormality. There is no CVA tenderness to palpation. No joint edema. LOWER EXTREMITIES: Calves are equal size bilaterally and non-tender. No edema. No discoloration. NEURO: Normal sensorium. No sensory or motor deficits noted. SKIN: No rash or jaundice noted. Medical Decision & Procedures ER Provider Diagnostic Interpretation: X-ray: Per my interpretation, radiologist review. CHEST ONE VIEW PORTABLE FINDINGS: The lungs are clear. Cardiac silhouette is normal in size. No pleural effusions. No pneumothorax. IMPRESSION: No acute process. Electronically signed by: Damon Flores M.D. 07/20/2017 9:38 PM Dictated Date/Time: 07/20/2017 9:35 PM Laboratory Results 07/20/17 20:25 Red Blood Count 6.27, Mean Corpuscular Volume 71.3, Mean Corpuscular Hemoglobin 24.4, Mean Corpuscular Hemoglobin Concent 34.2, Mean Platelet Volume 9.8, Neutrophils (%) (Auto) 46.0, Lymphocytes (%) (Auto) 37.9, Monocytes (%) (Auto) 8.0, Eosinophils (%) (Auto) 7.3, Basophils (%) (Auto) 0.5, Neutrophils # (Auto) 5.03, Lymphocytes # (Auto) 4.15, Monocytes # (Auto) 0.88, Eosinophils # (Auto) 0.80, Basophils # (Auto) 0.05 07/20/17 20:25 Test 07/20/17 20:25 07/20/17 23:26 White Blood Count 10.94 K/uL (4.8-10.8) Red Blood Count 6.27 M/uL (4.7-6.1) Hemoglobin 15.3 g/dL (14.0-18.0) Hematocrit 44.7 % (42-52) Mean Corpuscular Volume 71.3 fL (80-100) Mean Corpuscular Hemoglobin 24.4 pg (25-34) Mean Corpuscular Hemoglobin Concent 34.2 g/dl (32-36) Platelet Count 287 K/uL (130-400) Mean Platelet Volume 9.8 fL (7.4-10.4) Neutrophils (%) (Auto) 46.0 % Lymphocytes (%) (Auto) 37.9 % Monocytes (%) (Auto) 8.0 % Eosinophils (%) (Auto) 7.3 % Basophils (%) (Auto) 0.5 % Neutrophils # (Auto) 5.03 K/uL (1.4-6.5) Lymphocytes # (Auto) 4.15 K/uL (1.2-3.4) Monocytes # (Auto) 0.88 K/uL (0.11-0.59) Eosinophils # (Auto) 0.80 K/uL (0-0.5) Basophils # (Auto) 0.05 K/uL (0-0.2) RDW Standard Deviation 39.9 fL (36.4-46.3) RDW Coefficient of Variation 15.4 % (11.5-14.5) Immature Granulocyte % (Auto) 0.3 % Immature Granulocyte # (Auto) 0.03 K/uL (0.00-0.02) Anion Gap 6.0 mmol/L (3-11) Est Creatinine Clear Calc Drug Dose 72.1 ml/min Estimated GFR () 66.8 Estimated GFR (Non- 57.6 BUN/Creatinine Ratio 9.3 (10-20) Calcium Level 9.0 mg/dl (8.5-10.1) Total Bilirubin 0.6 mg/dl (0.2-1) Direct Bilirubin 0.1 mg/dl (0-0.2) Aspartate Amino Transf (AST/SGOT) 14 U/L (15-37) Alanine Aminotransferase (ALT/SGPT) 32 U/L (12-78) Alkaline Phosphatase 92 U/L (45-117) Total Protein 8.4 gm/dl (6.4-8.2) Albumin 4.0 gm/dl (3.4-5.0) Lipase 248 U/L (73-393) Troponin I 0.053 ng/ml (0-0.045) Laboratory results reviewed by me Medications Administered Medications (Trade) Dose Ordered Sig/Robbin Route Start Time Stop Time Status Last Admin Dose Admin Lactated Ringer's 1,000 ml @ 999 mls/hr Q1H1M STAT IV 07/20/17 20:31 07/20/17 21:31 DC 07/20/17 21:17 999 MLS/HR Metoclopramide HCl (Reglan Inj) 10 mg NOW STAT IV 07/20/17 20:31 07/20/17 20:36 DC 07/20/17 21:16 10 MG ECG Indication: other (HTN) Rate (beats per minute): 72 Rhythm: normal sinus Findings: no acute ischemic change, other (normal axis) ED Course 2023: The patient was evaluated in room C2. A complete history and physical exam was performed. 2030: Reglan Inj 10mg IV, Lactated Ringer's 1000ml @ 999mls/hr. 2032: I reevaluated and updated the patient. Medical Decision I reviewed the patient's past medical history, medications, and the nursing notes as described above. The patient's presentation and history were concerning for ACS, pneumonia, bronchitis, anxiety, dehydration, electrolyte abnormalities. The patient is a 42-year-old gentleman with a past medical history of hypertension on carvedilol and amlodipine who presents to emergency department with headache and chest pain and complaints of elevated blood pressure after he had been off of his amlodipine for the past week per history of present illness. Of note the patient had an admission in September for similar symptoms and had troponin elevation which is believed to be secondary to stress secondary to chronic the elevated blood pressure. On arrival the patient is in no acute distress, afebrile, SBP 160s but otherwise stable. EKG unremarkable without any signs of acute ischemia. Initial troponin 0.057 however also in the setting of likely undiagnosed CKD with creatinine of 1.47 which seems to be similar to prior. Although, on patient's last admission his troponin was 0.2. Given this history troponin was repeated after IV fluids with a subsequent decrease to 0.53 and thus most likely due to the patient's chronic hypertension in the setting of CKD similar to his prior admission. Moreover, patient's symptoms entirely resolved after IV fluids and Reglan with blood pressure improved to 130s/90s. Bedside echo was done and was negative for pericardial effusion. The patient did have mild hypertrophic LV otherwise grossly normal LV and RV function. Findings and plan for follow-up reviewed with patient. Patient agreeable and d/c'd per discharge instructions. Medication Reconcilliation Current Medication List: was personally reviewed by me Blood Pressure Screening Patient's blood pressure: Elevated blood pressure Blood pressure disposition: Referred to PCP Impression Primary Impression: Headache Additional Impression: Chest pain Scribe Attestation The scribe's documentation has been prepared under my direction and personally reviewed by me in its entirety. I confirm that the note above accurately reflects all work, treatment, procedures, and medical decision making performed by me. Departure Information Dispostion Home / Self-Care Referrals Bryant Ayala, D.O. (PCP) Patient Instructions ED Chest Pain Atypical Unkn Cause, ED Headache Tension, Hypertension Dc, Kidney Disease Chronic Dc, My [facility] Additional Instructions Please follow up with your primary care physician and doctor podiatric medicine, Dr. Sharma , on Sunday for re-evaluation. Your symptoms resolved after IV hydration and reglan. You symptoms may have been provoked by being off of your amlodipine for the last week. Your troponin was slightly elevated but essentially unchanged when repeated. Given your prior evaluation for this, this elevation is likely due to your chronic high blood pressure as well as your likely chronic kidney disease. Otherwise, your exam, EKG, chest xray, and lab results did not show signs of an emergent condition at this time. Return to the emergency department for worsening symptoms as described in the accompanying instructions. Problem Qualifiers
--- NOTE | 2017-07-20 21:39 | DIAGNOSTIC IMAGING REPORT ---
CHEST ONE VIEW PORTABLE HISTORY: Atypical CHEST PAIN COMPARISON: Chest 10/12/2016. FINDINGS: The lungs are clear. Cardiac silhouette is normal in size. No pleural effusions. No pneumothorax. IMPRESSION: No acute process. Electronically signed by: Damon Flores M.D. 07/20/2017 9:38 PM Dictated Date/Time: 07/20/2017 9:35 PM
[2017-07-20 21:47] LABS: BASO % 0.5 %; BASO ABS # 0.05 K/uL (0-0.2); COMPLETE YES; EOS % 7.3 %; HEMATOCRIT 44.7 % (42-52); IG% 0.3 %; LYMPH % 37.9 %; LYMPH ABS # 4.15 K/uL (1.2-3.4); MEAN CELL VOLUME 71.3 fL (80-100); MEAN CORPUSCULAR HEMOGLOBIN 24.4 pg (25-34); MEAN CORPUSCULAR HGB CONC 34.2 g/dl (32-36); MEAN PLATELET VOLUME 9.8 fL (7.4-10.4); PLATELET COUNT 287 K/uL (130-400); RED BLOOD COUNT 6.27 M/uL (4.7-6.1); WHITE BLOOD COUNT 10.94 K/uL (4.8-10.8)
[2017-07-20 21:55] LABS: BUN/CREATININE RATIO 9.3 (10-20); CREATININE 1.47 mg/dl (0.60-1.40); POTASSIUM 3.6 mmol/L (3.5-5.1)
[2017-07-20] MEDS ORDERED: CARV6.252 PO (22:15)
[2017-07-21 01:09] VITALS: BP 155/98; PULSE 74; O2SAT 99
== END 2017-07-21 01:49 | disposition home or self-care (01) ==
LOC: C.EDB 20:08 → C.EDC 07-21 01:49
DX: R07.9 Chest pain, unspecified (principal); R51 Headache; I10 Essential (primary) hypertension; F17.200 Nicotine dependence, unspecified, uncomplicated; Z79.82 Long term (current) use of aspirin; Z79.899 Other long term (current) drug therapy; Z91.018 Allergy to other foods